=== PATIENT | male | born 1940 ===

== ENCOUNTER 2017-07-31 09:44 | Day surgery (SDC) | payer OTHER ==
[2017-07-08 10:46] VITALS: BMI 34.5
[2017-07-31] MEDS: Lidocaine/Epinephrine 1% 1:100000 10 ML IJ ONE ×2 (10:39→11:52)
[2017-07-31] MEDS: Bupivacaine HCl 0.25% PF (30 ml) Inj ONE ×2 (10:39→11:52)
[2017-07-31] MEDS ORDERED: ceFAZolin 1 gm in NS 0 GM/0 ML BAG IVPB ONE (10:39)
--- NOTE | 2017-07-31 12:26 | PCM.SURG1 ---
Surgeon's Initial Post Op Note - Surgeon's Notes Surgeon: Dr. Ludwig Front End Drupal Developer: Rani Hernandez, PGY-1; Mone Daniel Pre-Operative Diagnosis: Lesion of Right forearm and right hip Operative Findings: See op report Post-Operative Diagnosis: Lesion of Right forearm and right hip Operation Performed: Excision of lesion from right forearm, excision of lesion from right hip Specimen/Specimens Removed: Mass from Right forearm and Right thigh Estimated Blood Loss: EBL {In ML}: 10 Blood Products Given: N/A Drains Used: No Drains Post-Op Condition: Good Date of Surgery/Procedure: 07/31/17 Time of Surgery/Procedure: 12:26
[2017-07-31] MEDS ORDERED: Oxycodone/Acetaminophen 5/325 mg Tab PO PRN (12:27)
[2017-07-31 12:35] VITALS: BP 137/81; PULSE 60; RESP 18; TEMP 98
[2017-07-31 14:20] VITALS: O2SAT 99
--- NOTE | 2017-07-31 23:47 | OP ---
PROCEDURE DATE: 07/31/2017 PREOPERATIVE DIAGNOSES: 1. Right forearm skin lesion. 2. Right hip skin lesion. POSTOPERATIVE DIAGNOSES: 1. Right forearm skin lesion. 2. Right hip skin lesion. PROCEDURE DONE: 1. Excision of the skin lesion of right forearm, 1 x 1 cm size. 2. Excision of the skin lesion of the right hip, 3 x 2 x 2 cm size. 3. Layered closure of the wound of the right hip, 3 x 2 x 2 cm size. SURGEON: Junior Ludwig MD SENIOR PRODUCT DEVELOPMENT MANAGER: Karo Hernandez, PGY-2 resident. TYPE OF ANESTHESIA: Local anesthesia. ESTIMATED BLOOD LOSS: Around 10 mL. DRAINS: None. PATHOLOGY: Skin lesion of the left forearm and left hip was sent for the pathology. COMPLICATIONS: None. DESCRIPTION OF PROCEDURE: The patient was placed supine on the operating table. After prepping and draping the left forearm and the left hip area, the local anesthesia was injected at both sites and elliptical incision was made surrounding the right forearm skin lesion and the lesion was completely excised. The wound was closed in 2 layers, subcutaneous with 2-0 Vicryl, skin with 4-0 Monocryl, and dry sterile dressing was applied. Now the elliptical incision was made approximately 4 x 2 cm size and after incising the skin and subcutaneous tissue, all the way deep up to the fascia, the whole lesion was completely excised and now the wound was irrigated. The wound size was approximately 4 x 2 x 2 cm size and the hemostasis was achieved and wound was closed in multiple layer, the deep layer of the subcu to the fascia with 2-0 Vicryl, another layer of superficial subcu with 2-0 Vicryl, skin with 4-0 Monocryl, and another layer of the skin with 4-0 nylon and dry sterile dressing was applied. The patient tolerated the procedure well. Count of instrument and gauze was correct. There were no apparent complications. The patient was sent to the postanesthesia care unit in stable condition. Junior Ludwig MD
== END 2017-07-31 12:55 | disposition home or self-care (01) ==
LOC: C.SDS 09:44
PROVIDERS: ATTEND Surgery Surgical Critical Care
DX: D21.11 Benign neoplasm of connective and other soft tissue of right upper limb, including shoulder (principal); L82.1 Other seborrheic keratosis